=== PATIENT | female | born 1980 | race Caucasian/White ===

== ENCOUNTER 2024-08-18 01:45 | Emergency (ER) | payer OTHER, SELFPAY ==
[2024-08-18] VITALS (9 sets, daily range): BP systolic 102–136; BP diastolic 64–106; BMI 20.6
[2024-08-18] MEDS: ZOFRAN 4 MG IV ×2 (02:06→03:34)
[2024-08-18] MEDS: TORADOL 30 MG IV (02:07)
[2024-08-18 02:22] LABS: Urine Albumin 2+ (Neg - Trace); Urine Bilirubin 3+ (Negative); Urine Character Clear (Clear); Urine Color Orange; Urine Glucose Negative (Negative); Urine Ketone 1+ (Negative); Urine Leukocyte Negative (Negative); Urine Nitrite Positive (Negative); Urine Occult Blood 3+ (Negative); Urine Specific Gravity 1.025 (<1.030); Urine Urobilinogen 3+ (Neg - 1+)
[2024-08-18 02:29] LABS: HCG, Serum Qualitative Screen Negative
--- NOTE | 2024-08-18 02:34 | ED.GENMED ---
History of Present Illness
<Tanner Serrano PA-C - Last Filed: 08/19/24 13:02>
General
Chief Complaint: Abdominal Pain
Source: patient
Time Seen by Provider: 08/18/24 02:29
History of Present Illness
History of Present Illness:
44-year-old female with past medical history migraine disorder presenting to the emergency department for evaluation of sudden onset left flank pain that started around 10 PM, notes associated urinary symptoms with this, has a history of frequent
urinary tract infections so took a dose of Azo and Macrobid but has not had any relief. Patient contacted EMS who provided patient with 50 mcg of fentanyl but this reportedly did not patient any relief. She was given additional 30 mg of Toradol
and fluids however still noting significant. Patient denies any fevers, nausea, vomiting, bowel changes, chest pain or shortness of breath. No history of kidney stones in the past. Does note a history of right oophorectomy from previous dermoid
cyst on the right ovary. Patient states no concern for .
Past History
<Tanner Serrano PA-C - Last Filed: 08/19/24 13:02>
Past History
ED Past Medical History: Other (Migraines)
ED Past Surgical History: Gynecological
Social History
Tobacco: Non-smoker
Alcohol: Occasional
Drug: None
Personal: Other ()
Living: with family
Review of Systems
<Tanner Serrano PA-C - Last Filed: 08/19/24 13:02>
Review of Systems
All Other Systems: ROS reviewed and negative except as documented in HPI and ROS
Phy Exam
<Tanner Serrano PA-C - Last Filed: 08/19/24 13:02>
Physical Exam
Physical Exam:
GENERAL: Alert , in no apparent distress but unable to sit still
EYE: clear conjunctiva b/l
HEAD: NCAT
ENT: o/p clr, mmm.
CARDIAC: Regular rate and rhythm .
LUNGS: Clear breath sounds bilaterally, no acute respiratory distress, no wheezes/rales/rhonchi
ABDOMEN: Soft, without focal tenderness, no r/g, mild left flank pain
NEUROLOGICAL: Alert and oriented
SKIN: Warm and dry, skin intact.
MUSCULOSKELETAL: well perfused.
PSYCH: Normal and appropriate interaction.
Scores
<Tanner Serrano PA-C - Last Filed: 08/19/24 13:02>
Heart Failure Risk
Heart Failure Risk Score: Not Applicable
Heart Score for Chest Pain Patients
STEMI patient?: Not applicable
Withdrawal Assessment of Alcohol
Withdrawal Assessment Completed?: Not applicable
Course
<Tanner Serrano PA-C - Last Filed: 08/19/24 13:02>
Orders/Labs/Results
Orders:
Orders
08/18/24 01:58
Test Result ONCE
08/18/24 02:04
Ketorolac [Toradol] 30 mg .ROUTE .STK-MED ONE
Ondansetron Injectable [Zofran] 4 mg .ROUTE .STK-MED ONE
08/18/24 02:06
Ondansetron Injectable [Zofran] 4 mg IV NOW STA
08/18/24 02:07
Ketorolac [Toradol] 30 mg IV NOW STA
08/18/24 02:08
Complete Blood Count/With Diff Urgent
Comprehensive Metabolic Panel Urgent
HCG, Serum Qualitative Screen Urgent
Urinalysis Reflex To Culture Urgent
Date Specimen was Collected: 08/18/24
Time Specimen was Collected: 02:06
Urine Microscopic Reflex Cult Urgent
Urine Culture Urgent
JED Source: U
Specimen Description:
Date Specimen was Collected: 08/18/24
Time Specimen was Collected: 02:06
08/18/24 02:34
CT Abd/pel Without Iv Or Oral Urgent
Comment:
Reason For Exam: left flank/LLQ pain
08/18/24 03:01
Lorazepam [Ativan] 0.5 mg IV NOW STA
08/18/24 03:31
0.9% Sodium Chloride 1000 ml [Nss] 1,000 ml IV BOLUS
HYDROmorphone [Dilaudid] 1 mg IV NOW STA
Ondansetron Injectable [Zofran] 4 mg IV NOW STA
08/18/24 04:43
Tamsulosin [Flomax] 0.4 mg PO NOW STA
Abnormal Lab Results
08/18/24
02:08
RBC 4.13 L 10^6/uL
(4.20-5.40)
MCH 32.0 H pg
(27.0-31.0)
MPV 10.7 H fL
(7.4-10.4)
Abs Immat Gran (auto) 0.1 H 10^3/uL
(0-0.05)
Absolute Monos (auto) 0.7 H 10^3/uL
(0.1-0.6)
Immature Gran % 1.2 H %
(0-0.5)
Carbon Dioxide 18 L mmol/L
(22-30)
BUN 21 H mg/dl
(7-17)
Glucose 119 H mg/dl
(70-99)
Urine Ketones 1+ A
(Negative)
Ur Occult Blood Reflex 3+ A
(Negative)
Urine Nitrite (Reflex) Positive A
(Negative)
Urine Bilirubin 3+ A
(Negative)
Urine Urobilinogen 3+ A
(Neg - 1+)
Urine RBC 50-60 A /HPF
(0-2)
Urine WBC (Reflex) 16-20 A /HPF
(0-5)
Urine Bacteria (Reflex) Moderate A
(Negative)
Urine Albumin (Reflex) 2+ A
(Neg - Trace)
08/18/24 02:08
08/18/24 02:08
Vital Signs
Initial and Last Documented VS:
Initial Vital Signs
Temp
99.0 F
08/18/24 01:49
Last Documented Vital Signs
Temp Pulse Resp BP Pulse Ox
98.2 F 83 16 103/65 100
08/18/24 08:21 08/18/24 08:21 08/18/24 08:21 08/18/24 08:21 08/18/24 08:21
<Marissa Pérez, DO - Last Filed: 08/18/24 06:26>
Orders/Labs/Results
Orders:
Orders
08/18/24 01:58
Test Result ONCE
08/18/24 02:04
Ketorolac [Toradol] 30 mg .ROUTE .STK-MED ONE
Ondansetron Injectable [Zofran] 4 mg .ROUTE .STK-MED ONE
08/18/24 02:06
Ondansetron Injectable [Zofran] 4 mg IV NOW STA
08/18/24 02:07
Ketorolac [Toradol] 30 mg IV NOW STA
08/18/24 02:08
Complete Blood Count/With Diff Urgent
Comprehensive Metabolic Panel Urgent
HCG, Serum Qualitative Screen Urgent
Urinalysis Reflex To Culture Urgent
Date Specimen was Collected: 08/18/24
Time Specimen was Collected: 02:06
Urine Microscopic Reflex Cult Urgent
Urine Culture Urgent
JED Source: U
Specimen Description:
Date Specimen was Collected: 08/18/24
Time Specimen was Collected: 02:06
08/18/24 02:34
CT Abd/pel Without Iv Or Oral Urgent
Comment:
Reason For Exam: left flank/LLQ pain
08/18/24 03:01
Lorazepam [Ativan] 0.5 mg IV NOW STA
08/18/24 03:31
0.9% Sodium Chloride 1000 ml [Nss] 1,000 ml IV BOLUS
HYDROmorphone [Dilaudid] 1 mg IV NOW STA
Ondansetron Injectable [Zofran] 4 mg IV NOW STA
08/18/24 04:43
Tamsulosin [Flomax] 0.4 mg PO NOW STA
Abnormal Lab Results
08/18/24
02:08
RBC 4.13 L 10^6/uL
(4.20-5.40)
MCH 32.0 H pg
(27.0-31.0)
MPV 10.7 H fL
(7.4-10.4)
Abs Immat Gran (auto) 0.1 H 10^3/uL
(0-0.05)
Absolute Monos (auto) 0.7 H 10^3/uL
(0.1-0.6)
Immature Gran % 1.2 H %
(0-0.5)
Carbon Dioxide 18 L mmol/L
(22-30)
BUN 21 H mg/dl
(7-17)
Glucose 119 H mg/dl
(70-99)
Urine Ketones 1+ A
(Negative)
Ur Occult Blood Reflex 3+ A
(Negative)
Urine Nitrite (Reflex) Positive A
(Negative)
Urine Bilirubin 3+ A
(Negative)
Urine Urobilinogen 3+ A
(Neg - 1+)
Urine RBC 50-60 A /HPF
(0-2)
Urine WBC (Reflex) 16-20 A /HPF
(0-5)
Urine Bacteria (Reflex) Moderate A
(Negative)
Urine Albumin (Reflex) 2+ A
(Neg - Trace)
03/04/25 02:08
08/18/24 02:08
Vital Signs
Initial and Last Documented VS:
Initial Vital Signs
Temp
99.0 F
08/18/24 01:49
Last Documented Vital Signs
Temp Pulse Resp BP Pulse Ox
98.2 F 83 16 103/65 100
08/18/24 08:21 08/18/24 08:21 08/18/24 08:21 08/18/24 08:21 08/18/24 08:21
<Tanner Serrano PA-C - Last Filed: 08/19/24 13:02>
MDM/Problems Addressed
Differential Diagnosis Includes:
renal/ureteral colic, UTI/pyelonephritis, ovarian cyst/torsion, diverticulitis
MDM/Problems Addressed:
44 year old female with sudden onset LLQ pain earlier this evening. Minimal pain relief with fentanyl 50mcg and 30mg toradol IV. Urine nitrite positive. Awaiting differential. CT scan ordered.
<Tanner Serrano PA-C - Last Filed: 08/19/24 13:02>
*Pulse Oximetry
Patient hypoxic: no
*[employer] Interpretation
Rate: tachycardiac
Rhythm: sinus
<Marissa Pérez DO - Last Filed: 08/18/24 06:26>
*Radiology
Radiology exam reviewed: radiology read reviewed
*Critical Care Note
Total Time (30-74mins, 75-104mins- exclusive of procedures): Not Applicable
<DO Pieter Awan Last Filed: 08/18/24 06:26>
Update Note
Update Note:
05:45
Patient is pain-free and comfortable after an IV dose of Dilaudid. No further nausea.
CAT scan shows a 2 mm stone distal left ureter with mild hydronephrosis.
Will plan for discharge to home with prescription for Percocet as well as oral Toradol for pain, Zofran for as needed nausea.
She has been given a one-time dose of Flomax.
Discussed importance of staying well-hydrated on a daily basis.
Will refer to urology for follow-up.
Return precautions discussed.
ED Attending Note
<Tanner Serrano PA-C - Last Filed: 08/19/24 13:02>
-
Portions of this chart may have been created with voice recognition software.� Occasional wrong word or��sound alike� substitutions may have occurred due to the inherent limitations of voice recognition software.
<Marissa Pérez DO - Last Filed: 08/18/24 06:26>
ED Attending Note
Patient seen and examined by attending physician: Yes
I performed a history and physical exam of patient and discussed management with resident, I reviewed resident's note and agree with documented findings and plan of care.: Yes
ED Attending Note:
44-year-old woman with history of UTIs, migraine headaches, mitral valve prolapse and prior history of dermoid ovarian cyst with right oophorectomy presents with abrupt onset of severe left lower quadrant pain that radiates to her left flank
accompanied with nausea and vomiting. Pain began around 10 PM and with the pain she noted some urinary hesitancy but denies dysuria nor hematuria. She thought that perhaps she had a UTI however admits that she has never had flank pain nor severe
pain with previous UTIs.
Nonetheless with onset of symptoms she took a dose of Macrobid as well as an Azo. No improvement and she presents via EMS. Received IV fentanyl prehospital with moderate but only temporary relief of pain.
Thus far no significant improvement after an IV dose of Toradol, IV Ativan. Continues with nausea but no further vomiting.
Concern for renal colic/ureteric stone, pyelonephritis, other consideration is ovarian cyst, ovarian torsion.
CBC is unremarkable. Chemistries are unremarkable. hCG is negative.
Urinalysis is nitrite positive, positive for bilirubin, urobilinogen likely all related to Azo.
Microscopic however has 50-60 RBCs, 16-20 WBCs, moderate bacteria. Appears to be a contaminated specimen with greater than 30 squamous epithelial cells however also note of calcium oxalate crystals.
CT reviewed initially by myself shows a tiny stone distal left ureter with mild to moderate hydronephrosis. There is no evidence of ovarian cyst nor pelvic cystic mass.
Will medicate for pain with IV Dilaudid, given additional dose of IV Zofran and continue IV fluids.
Discharge Plan
Departure
Patient Disposition: Home (Routine Discharge)
Date of Disposition: 08/18/24
Time of Disposition: 06:22
Patient with high blood pressure during this ER visit?: No
Condition: Good
Discharge Problem:
Calculus of distal left ureter
Instructions: Kidney stones in adults, How to Strain Your Urine, Kidney stone diet
Prescriptions:
New
ketorolac 10 mg tablet
10 mg PO Q6H 5 Days Qty: 20 0RF
oxycodone-acetaminophen [Percocet] 5-325 mg Tablet
1 tab PO Q4HPRN PRN (Reason: pain) Qty: 10 0RF
ondansetron 4 mg tablet,disintegrating
4 mg PO QID PRN (Reason: nausea and vomiting) Qty: 20 0RF
Referrals:
Saad Reese MD [Active] - Call in 1-3 days for appt
Keshawn Rosales DO [Family Provider] -
Interventions
Interventions:
*Risk Screen - Suicide Last Done: 08/18/24 01:49
*General Assessment Last Done: 08/18/24 01:49
*Neglect/Abuse Screening Last Done: 08/18/24 01:49
*ED- Fall Risk Assessment Last Done: 08/18/24 01:49
*ED COVID-19 Vaccine History Last Done: 08/18/24 01:49
*Nursing Disposition Last Done: 08/18/24 08:21
UI-Qswjgk-Gjammhmfnc Assessment Last Done: 08/18/24 01:49
Discharge Date and Time
Discharge Date/Time: 08/18/24 08:30
Print Language: KAZAKH
[2024-08-18 02:39] LABS: Urine Squamous Cell >30 /LPF (Few)
[2024-08-18 02:40] LABS: ALT (SGPT) 18 U/L (0-35); AST (SGOT) 20 U/L (14-36); Albumin 3.7 g/dl (3.5-5.0); Alkaline Phosphatase 62 U/L (38-126); Blood Urea Nitrogen 21 mg/dl (7-17); Calcium 9.2 mg/dl (8.4-10.2); Carbon Dioxide 18 mmol/L (22-30); Chloride 107 mmol/L (98-107); Estimated Creatinine Clearance 66 ml/min; Glucose 119 mg/dl (70-99); Sodium 135 mmol/L (135-145); Total Bilirubin 0.7 mg/dl (0.2-1.3); Total Protein 6.4 g/dl (6.3-8.2); eGFR > 60.00
[2024-08-18 02:42] LABS: Urine Calcium Oxalate Crystals Seen; Urine Mucus Moderate
[2024-08-18 02:44] LABS: Urine Bacteria Moderate (Negative); Urine Red Blood Cell 50-60 /HPF (0-2); Urine White Cell 16-20 /HPF (0-5)
[2024-08-18 02:49] LABS: % Basophils 0.7 % (0-2); % Eosinophils 1.7 % (0-6); % Immature Granulocytes 1.2 % (0-0.5); % Lymphocytes 30.3 % (20.5-51.1); % Monocytes 8.1 % (1.7-9.3); Absolute Basophils 0.1 10^3/uL (0-0.2); Absolute Eosinophils 0.2 10^3/uL (0-0.7); Absolute Immature Granulocytes 0.1 10^3/uL (0-0.05); Absolute Lymphocytes 2.6 10^3/uL (1.2-3.4); Absolute Monocytes 0.7 10^3/uL (0.1-0.6); Hemoglobin 13.2 g/dL (12.0-16.0); Mean Corp Hgb Conc. 34.7 g/dL (33.0-37.0); Nucleated Red Blood Cells % 0 %; Red Blood Cell Count 4.13 10^6/uL (4.20-5.40); Red Cell Dist. Width 12.9 % (11.5-14.5); White Blood Cell Count 8.6 10^3/uL (4.8-10.8)
[2024-08-18] MEDS: ATIVAN 0.5 MG IV (03:04)
[2024-08-18] MEDS: DILAUDID 1 MG IV (03:34)
[2024-08-18] MEDS: NSS 1000 IV (03:34)
[2024-08-18 03:44] LABS: Mean Platelet Volume 10.7 fL (7.4-10.4); Platelet Count 216 10^3/uL (130-400)
[2024-08-18 03:45] LABS: Comment L
[2024-08-18] MEDS: FLOMAX 0.4 MG PO (05:05)
--- NOTE | 2024-08-18 08:20 | EDRN ---
Reviewed discharge instructions with patient. Verbalized understanding.
== END 2024-08-18 08:30 | disposition home or self-care (01) ==
LOC: EMR 01:45
PROVIDERS: EMERGENCY PHYSICIAN Emergency Medicine; FAMILY PHYSICIAN Family Medicine
DX: N13.2 Hydronephrosis with renal and ureteral calculous obstruction (principal); R39.11 Hesitancy of micturition; G43.909 Migraine, unspecified, not intractable, without status migrainosus; I34.1 Nonrheumatic mitral (valve) prolapse; Z87.440 Personal history of urinary (tract) infections; Z86.018 Personal history of other benign neoplasm; Z90.721 Acquired absence of ovaries, unilateral; Z88.0 Allergy status to penicillin
CPT/HCPCS: 99284; 96374; 96375 ×3; 96361; 74176; 80053; 81003; 81015; 84703; 85025; 87086

== ENCOUNTER → 2025-05-31 11:13 | Outpatient (REF) | payer OTHER, SELFPAY | LOC: HWWDC 11:13 | PROVIDERS: ATTENDING PHYSICIAN Obstetrics & Gynecology Gynecology; FAMILY PHYSICIAN Family Medicine | DX: Z12.31 Encounter for screening mammogram for malignant neoplasm of breast (principal) | CPT/HCPCS: 77063; 77067 ==